=== PATIENT | female | born 1985 | race Hispanic/Latino ===

== ENCOUNTER 2023-05-18 00:22 | Emergency (ER) | payer SELFPAY ==
[2023-05-18 00:34] LABS: #Eosinphils 0.1 thou/uL (0.0-0.7); #Monocytes 0.8 thou/uL (0.11-0.59); #Neutrophils 3.1 thou/uL (1.40-6.50); %Basophils 0.4 % (0.0-1.0); %Eosinophils 1.7 % (0.0-10.0); %Lymphocytes 44.9 % (21.0-51.0); %Monocytes 11.2 % (0.0-10.0); %Neutrophils 41.7 % (42.0-75.0); Hematocrit 43.3 % (36.0-47.0); Hemoglobin 14.2 g/dL (12.0-16.0); Mean Corpuscular HGB CONC 32.8 g/dL (32.0-36.0); Mean Corpuscular Volume 88.4 fl (78.0-98.0); Mean Platelet Volume 11.1 fL (7.4-10.4); Platelet Count 242 10x3/uL (130-400); RBC Distribution Width 13.7 % (11.5-14.5); White Blood Cell (WBC) Count 7.4 10x3/uL (4.8-10.8)
[2023-05-18] MEDS ORDERED: Lidocaine 1% w/Epinephrine 1:100K 20 ML VIAL ONE (00:46)
[2023-05-18 01:00] LABS: ALT (SGPT) 16 U/L (8-55); AST (SGOT) 19 U/L (5-34); Albumin 4.8 g/dL (3.5-5.0); Alkaline Phosphatase 69 U/L (40-110); Anion Gap 16 mmol/L (10-20); BUN (Urea Nitrogen) 15 mg/dL (7.0-18.7); Bilirubin, Total 0.3 mg/dL (0.2-1.2); Calc. Creatinine Clearance 0 mL/min (70-130); Calcium 9.1 mg/dL (7.8-10.44); Carbon Dioxide 20 mmol/L (22-29); Chloride 110 mmol/L (98-107); Estimated GFR 98; Globulin 3.1 g/dL (2.4-3.5); Glucose 90 mg/dL (70-105); Potassium 3.2 mmol/L (3.5-5.1); Protein, Total 7.9 g/dL (6.0-8.3); Sodium 143 mmol/L (136-145)
[2023-05-18] MEDS ORDERED: Bacitracin 1 PK ONE (01:02)
[2023-05-18 01:15] LABS: BHCG - Serum Negative (NEGATIVE); Pregs Control Background? CLEAR/WHITE (CLR/WHITE); Pregs Control Bar Appear? YES (CONTROL BAR)
[2023-05-18 01:21] LABS: Acetaminophen Less than 10 mcg/mL (10.0-30.0); Salicylate Less than 8.0 mg/dL (15.0-30.0)
[2023-05-18] MEDS ORDERED: Boostrix 0.5 ML (Tdap) VIAL (>/=7 yrs of age) ONE (01:39)
[2023-05-18] MEDS ORDERED: Sodium Chloride 0.9% 100 ML ONE (01:39)
[2023-05-18] MEDS ORDERED: CEFAZOLIN 2 GM VIAL ONE (01:39)
[2023-05-18 02:16] LABS: Alcohol 151.5 mg/dL (Less than 10)
== END 2023-05-18 04:19 | disposition home or self-care (01) ==
LOC: ERS 00:22
DX: S65.011A Laceration of ulnar artery at wrist and hand level of right arm, initial encounter (principal); F10.129 Alcohol abuse with intoxication, unspecified; W25.XXXA Contact with sharp glass, initial encounter; Y92.009 Unspecified place in unspecified non-institutional (private) residence as the place of occurrence of the external cause; Y90.6 Blood alcohol level of 120-199 mg/100 ml
CPT/HCPCS: 12001; 36415; 80053; 80307; 83605; 84703; 85025; 86850; 86900; 86901; 90471; 90715; 96365; 96375; G0390; J3490